=== PATIENT | female | born 1995 | race African-American/Black ===

== ENCOUNTER 2021-07-13 11:17 | Emergency (ER) | payer MEDICAID, SELFPAY ==
[2021-07-13 11:18] VITALS: BP 129/72; PULSE 90; RESP 16; TEMP 36.6; O2SAT 100; BMI 34.9
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
== END 2021-07-13 12:11 | disposition home or self-care (01) ==
PROVIDERS: Emergency Provider Emergency Medicine; Visit Provider Emergency Medicine
DX: S09.22XA Traumatic rupture of left ear drum, initial encounter (principal); Y04.8XXA Assault by other bodily force, initial encounter
CPT/HCPCS: 99282